=== PATIENT | female | born 1985 | race Two or more races ===

== ENCOUNTER 2022-01-30 11:51 | Emergency (ER) | payer MEDICAID, OTHER ==
[~2022-01-30] VITALS: Ht 157.5 cm; Wt 104.5 kg
[2022-01-30 13:25] LABS: Urine Bacteria FEW /hpf (None Seen); Urine Blood Negative /uL (Negative); Urine Specific Gravity 1.012 (1.001-1.035); Urine WBC <1 /hpf (0 - 5)
[2022-01-30 13:33] LABS: Basophils # (auto) 0.1 10 ^3/uL (0-0.2); Basophils % (auto) 0.7 % (0.0-2.0); Eosinophils # (auto) 0.1 10 ^3/uL (0-0.8); Eosinophils % (auto) 0.8 % (0.0-7.0); Hematocrit 39.3 % (36.0-46.0); Hemoglobin 12.3 g/dL (12.2-16.2); Lymphocytes # (auto) 3.4 10 ^3/uL (0.4-5.4); Lymphocytes % (auto) 33.6 % (10.0-50.0); Mean Corpuscular Hemoglobin 24.1 pg (28.0-32.0); Mean Corpuscular Hgb Conc. 31.3 g/dL (32.0-36.0); Mean Corpuscular Volume 77.1 fL (80.0-100.0); Monocytes # (auto) 0.4 10 ^3/uL (0-1.3); Monocytes % (auto) 4.4 % (0.0-12.0); Neutrophils # (auto) 6.2 10 ^3/uL (1.6-8.6); Neutrophils % (auto) 60.5 % (37.0-80.0); Red Cell Distribution Width 14.7 % (11.8-14.3); White Blood Cell 10.2 10^3/uL (4.4-10.8)
[2022-01-30 13:54] VITALS: BP 139/107
[2022-01-30 14:04] LABS: Calcium 8.3 mg/dL (8.5-10.1)
[2022-01-30] MEDS ORDERED: KETOROLAC TROMETH 60MG/2ML VIAL IM ONE (14:15)
[2022-01-30] MEDS ORDERED: IBUP800T27 PO (14:40)
== END 2022-01-30 14:46 | disposition home or self-care (01) ==
LOC: ER 11:51
DX: R10.30 Lower abdominal pain, unspecified (principal); Z79.1 Long term (current) use of non-steroidal anti-inflammatories (NSAID); Z88.0 Allergy status to penicillin
CPT/HCPCS: 36415; 74176; 80048; 81001; 81025; 85025; 96372; 99284; J1885

== ENCOUNTER 2022-09-11 12:50 | Emergency (ER) | payer MEDICAID ==
[~2022-09-11] VITALS: Ht 157.5 cm; Wt 103.1 kg
[~2022-09-11 12:50] MED LIST: IBUP-1456 PO
[2022-09-11 13:39] VITALS: BP 149/106
[2022-09-11] MEDS ORDERED: ACETAMINOPHEN 500 MG TAB PO STA (14:00)
[2022-09-11] MEDS ORDERED: KETOROLAC TROMETH 30 MG/ML 1ML VIAL IV STA (15:08)
[2022-09-11] MEDS ORDERED: IBUP-1454 PO (15:12)
[2022-09-11] MEDS ORDERED: CYCL-837 PO (15:12)
== END 2022-09-11 15:33 | disposition home or self-care (01) ==
LOC: ER 12:50
DX: S39.013A Strain of muscle, fascia and tendon of pelvis, initial encounter (principal); S83.91XA Sprain of unspecified site of right knee, initial encounter; Z88.0 Allergy status to penicillin; Z88.6 Allergy status to analgesic agent; Z98.890 Other specified postprocedural states; W18.39XA Other fall on same level, initial encounter; Y93.89 Activity, other specified; Y92.512 Supermarket, store or market as the place of occurrence of the external cause; Y99.8 Other external cause status
CPT/HCPCS: 72170; 73562